=== PATIENT | male | born 1955 | race Hispanic/Latino ===

== ENCOUNTER 2024-04-10 14:21 | Emergency (ER) | payer OTHER | END 2024-04-10 15:30 | disposition home or self-care (01) | LOC: NAV ERS 14:21 | DX: S91.309D Unspecified open wound, unspecified foot, subsequent encounter (principal); E11.621 Type 2 diabetes mellitus with foot ulcer; K21.9 Gastro-esophageal reflux disease without esophagitis; K59.00 Constipation, unspecified; I10 Essential (primary) hypertension; E78.00 Pure hypercholesterolemia, unspecified; E03.9 Hypothyroidism, unspecified; Z79.899 Other long term (current) drug therapy; Z79.82 Long term (current) use of aspirin; Z79.4 Long term (current) use of insulin | CPT/HCPCS: 99283 ==